=== PATIENT | male | born 1965 | race African-American/Black ===

== ENCOUNTER 2018-11-29 15:05 | Inpatient (IN) ==
[2018-11-29 16:15] LABS: Basophils # 0.1 10*3/uL (0.0-0.2); Basophils % 1.1 % (0.0-0.8); Eosinophils # 0.1 10*3/uL (0.0-0.87); Eosinophils % 0.4 % (0.00-10.9); Hemoglobin 7.7 GM/DL (14.0-18.0); Immature Granulocytes % 0.5 %; Immature Granulocytes Absolute 0.06 #; Lymphocytes # 1.2 10*3/uL (1.4-4.0); Lymphocytes % 9.9 % (21.2-54.2); Mean Corpuscular HGB Conc 30.8 GM/DL (32-36); Mean Corpuscular Volume 63.9 FL (87-102); Mean Platelet Volume 8.7 FL (9.6-12.0); Monocytes % 6.8 % (1.7-12.7); Neutrophils % 81.3 % (38.7-73.9); Platelet Count 268 T/CUMM (130-400); Red Blood Count 3.91 MC/CUMM (3.8-5.5); Red Cell Distribution Width 20.4 % (9.3-17.3); White Blood Count 12.1 T/CUMM (4-12)
[2018-11-29] MEDS ORDERED: DIPH/TET/ACEL PERT BOOSTER VACCINE 0.5 ML VIAL IM ONE (16:29)
[2018-11-29] MEDS ORDERED: THIAMINE INJ 100 MG, FOLIC ACID INJ 1 MG, MAGNESIUM SULF INJ 2 GM, MULTIVITAMIN INJ 10 ... IV STA (16:37)
[2018-11-29 16:55] LABS: INR 1.2; PT Patient Result 13.4 SECS; Partial Thromboplastin Time 28.4 SECS (0-40)
[2018-11-29 16:58] LABS: Albumin 2.6 G/DL (3.4-5.0); Bilirubin,Total 0.4 MG/DL (0.2-1.0); Calcium 7.5 MG/DL (8.5-10.1); Osmolality,Calculated 270.7 MOS/KG (273-304)
[2018-11-29] MEDS ORDERED: LORazepam 2 MG/1 ML VIAL IV PRN (18:43)
[2018-11-29] MEDS ORDERED: SODIUM CHLORIDE 0.9% 1,000 ML IV PRN (18:43)
[2018-11-29] MEDS ORDERED: ONDANSETRON 4 MG/2 ML VIAL IV PRN (18:43)
[2018-11-29] MEDS ORDERED: ACETAMINOPHEN 325 MG TABLET PO PRN (18:43)
[2018-11-29 19:32] LABS: Ferritin 38.7 ng/ml (26-388)
[2018-11-29 19:39] LABS: Folate 15.3 NG/ML (5.4-24.0); Vitamin B12 > 2000 PG/ML (211-911)
[2018-11-29 20:07] LABS: % Iron Saturation 2.3 % (18-50); Thyroid Stimulating Hormone 0.67 uIU/ml (0.358-3.74)
[2018-11-29] MEDS: PANTOPRAZOLE 40 MG TABLET PO SCH (20:48)
[2018-11-29] MEDS: MORPHINE 4 MG/1 ML VIAL IV PRN (22:45)
[2018-11-29 23:24] LABS: Apearance,Urine CLEAR (Clear); Bacteria,Urine Occasional /HPF (Few); Bilirubin,Urine Negative (Negative); Blood, Urine Negative (Negative); Glucose,Urine (UA) Negative (Negative); Ketones,Urine Negative (Negative); Mucus,Urine Occasional /LPF (Occasional); Nitrite,Urine Negative (Negative); Protein,Urine Negative; RBC,Urine 1 /HPF (0-4); Urine Color Yellow (Yellow); Urine Specific Gravity 1.004 (1.001-1.035); Urine Urobilinogen < 2.0 EU/DL (0.2-1.0); WBC,Urine <1 /HPF (0-6)
[2018-11-29 23:51] LABS: Barbiturates Screen,Urine Negative (Negative); Benzodiazepines Screen,Urine Negative (Negative); Cannabinoid Screen,Urine Positive (Negative); Opiate Screen,Urine Negative (Negative); Phencyclidine Screen,Urine Negative (Negative)
[2018-11-30] MEDS: SODIUM CHLOR 0.9% KCL 40 MEQ 40 MEQ/1,000 ML BAG IV SCH ×4 (03:25→23:47)
[2018-11-30 06:57] LABS: Basophils # 0.1 10*3/uL (0.0-0.2); Basophils % 1.4 % (0.0-0.8); Eosinophils % 0.5 % (0.00-10.9); Hematocrit 31.9 VOL% (42.0-52.0); Hemoglobin 10.1 GM/DL (14.0-18.0); Immature Granulocytes % 0.3 %; Immature Granulocytes Absolute 0.02 #; Lymphocytes # 1.1 10*3/uL (1.4-4.0); Lymphocytes % 14.2 % (21.2-54.2); Mean Corpuscular HGB Conc 31.7 GM/DL (32-36); Mean Corpuscular Volume 70.3 FL (87-102); Mean Platelet Volume 8.7 FL (9.6-12.0); Monocytes % 11.8 % (1.7-12.7); Neutrophils % 71.8 % (38.7-73.9); Platelet Count 255 T/CUMM (130-400); Red Blood Count 4.54 MC/CUMM (3.8-5.5); Red Cell Distribution Width 25.9 % (9.3-17.3); White Blood Count 7.7 T/CUMM (4-12)
[2018-11-30 07:22] LABS: Albumin 2.8 G/DL (3.4-5.0); Bilirubin,Total 0.7 MG/DL (0.2-1.0); Total Protein 6.9 G/DL (6.4-8.3)
[2018-11-30 08:04] LABS: Hypochromasia 3+; Microcytosis 3+
[2018-11-30 08:05] LABS: Ovalocytes Slight; Platelet Estimate Normal; Target Cells Few; Tear Drop Cells Slight
[2018-11-30] MEDS: MULTIVITAMIN (CENTRUM) TABLET PO SCH (12:13)
[2018-11-30] MEDS: PANTOPRAZOLE 40 MG TABLET PO SCH ×2 (12:14→21:03)
[2018-11-30] MEDS: THIAMINE 100 MG TABLET PO SCH (12:14)
[2018-11-30] MEDS: FERROUS SULFATE 325 MG TABLET PO SCH ×2 (12:14→21:03)
[2018-11-30] MEDS: FOLIC ACID 1 MG TABLET PO SCH (12:14)
[2018-11-30 14:33] LABS: Hepatitis B Core IgM Quant < 0.05 Index; Hepatitis B Surface Ag Quant < 0.10 Index; Hepatitis B Surface Ag Result Negative (Negative); Hepatitis C Virus Ab Quant 0.05 Index; Hepatitis C Virus Ab Result Negative (Negative)
[2018-11-30] MEDS ORDERED: ceFAZolin 1,000 MG VIAL ONE (16:17)
[2018-11-30] MEDS ORDERED: MIDAZOLAM 2 MG/2 ML VIAL ONE (17:57)
[2018-11-30] MEDS ORDERED: SEVOFLURANE 1 UNIT/15 MINUTE INH ONE (17:57)
[2018-11-30] MEDS ORDERED: PROPOFOL 200 MG/20 ML VIAL IV ONE (17:57)
[2018-11-30] MEDS ORDERED: NEOSTIGMINE 10 MG/10 ML VIAL ONE (17:58)
[2018-11-30] MEDS ORDERED: ROCURONIUM 100 MG/10 ML VIAL IV ONE (17:58)
[2018-11-30] MEDS ORDERED: fentaNYL 100 MCG/2 ML VIAL ONE (17:58)
[2018-11-30] MEDS ORDERED: PHENYLEPHRINE 1 MG/10 ML SYRINGE IV ONE (17:58)
[2018-11-30] MEDS ORDERED: GLYCOPYRROLATE 0.4 MG/2 ML VIAL ONE (17:58)
[2018-11-30] MEDS ORDERED: HYDROmorphone 2 MG/1 ML VIAL ONE (17:59)
[2018-11-30] MEDS ORDERED: ONDANSETRON 4 MG/2 ML VIAL ONE (17:59)
[2018-11-30] MEDS ORDERED: LABETALOL 20 MG/4 ML SYRINGE IV ONE ×2 (18:00→18:15)
[2018-11-30] MEDS ORDERED: ONDANSETRON 4 MG/2 ML VIAL IV PRN (18:00)
[2018-11-30] MEDS ORDERED: HYDROmorphone 2 MG/1 ML VIAL IV PRN (18:00)
[2018-11-30] MEDS ORDERED: hydrALAZINE 20 MG/1 ML VIAL IV ONE (20:08)
[2018-11-30] MEDS: MORPHINE 4 MG/1 ML VIAL IV PRN (23:51)
[2018-12-01 04:54] LABS: Basophils # 0.1 10*3/uL (0.0-0.2); Basophils % 0.6 % (0.0-0.8); Eosinophils % 0.3 % (0.00-10.9); Hematocrit 28.2 VOL% (42.0-52.0); Hemoglobin 8.8 GM/DL (14.0-18.0); Immature Granulocytes % 0.4 %; Immature Granulocytes Absolute 0.04 #; Lymphocytes # 1.1 10*3/uL (1.4-4.0); Lymphocytes % 10.1 % (21.2-54.2); Mean Corpuscular HGB Conc 31.2 GM/DL (32-36); Mean Corpuscular Volume 70.1 FL (87-102); Monocytes % 11.3 % (1.7-12.7); Neutrophils % 77.3 % (38.7-73.9); Platelet Count 243 T/CUMM (130-400); Red Blood Count 4.02 MC/CUMM (3.8-5.5); Red Cell Distribution Width 25.3 % (9.3-17.3); White Blood Count 10.8 T/CUMM (4-12)
[2018-12-01] MEDS: SODIUM CHLOR 0.9% KCL 40 MEQ 40 MEQ/1,000 ML BAG IV SCH (05:12)
[2018-12-01 05:18] LABS: Calcium 8.2 MG/DL (8.5-10.1); Osmolality,Calculated 272.7 MOS/KG (273-304)
[2018-12-01 05:24] LABS: Albumin 2.5 G/DL (3.4-5.0); Bilirubin,Total 1.3 MG/DL (0.2-1.0); Calcium 8.2 MG/DL (8.5-10.1); Osmolality,Calculated 274.5 MOS/KG (273-304); Total Protein 6.3 G/DL (6.4-8.3)
[2018-12-01 05:32] LABS: Hypochromasia 2+
[2018-12-01 05:33] LABS: Anisocytosis 2+; Microcytosis 1+; Platelet Estimate Normal; Target Cells 3+
[2018-12-01] MEDS: THIAMINE 100 MG TABLET PO SCH (08:53)
[2018-12-01] MEDS: FERROUS SULFATE 325 MG TABLET PO SCH (08:53)
[2018-12-01] MEDS: FOLIC ACID 1 MG TABLET PO SCH (08:53)
[2018-12-01] MEDS: MULTIVITAMIN (CENTRUM) TABLET PO SCH (08:53)
[2018-12-01] MEDS: PANTOPRAZOLE 40 MG TABLET PO SCH (08:53)
[2018-12-01] MEDS ORDERED: SODIUM CHLORIDE 0.9% 1,000 ML IV SCH (09:30)
[2018-12-01 12:05] VITALS: BP 127/76
== END 2018-12-01 15:30 | disposition home or self-care (01) | DRG 315 ==
LOC: EDUNIT# → EDBD → N.ED 15:05 → SUATTDRO 17:22 → N.EDINP 17:22 → N.4E 18:42
PROVIDERS: ADMIT Internal Medicine; ATTEND Internal Medicine